=== PATIENT | female | born 1985 | race Caucasian/White ===

== ENCOUNTER 2020-06-17 12:29 | Emergency (ER) | payer OTHER, SELFPAY ==
--- NOTE | ~2020-06-17 | XR_ITS ---
EXAMINATION: XR abdomen/kub 1V DATE: 06/17/2020 13:03 INDICATION: Left mid back pain. Hematuria. TECHNIQUE: A supine view of the abdomen on 2 radiographs was obtained. COMPARISON: None. FINDINGS: There are no dilated loops of bowel. A calcification in right pelvis is likely a phlebolith . IMPRESSION: 1. No visible urolithiasis. Reviewed, dictated and finalized at location A. IMPRESSION: 1. No visible urolithiasis.
--- NOTE | 2020-06-17 12:36 | ED.GENADULT ---
HPI - General Adult General Chief complaint: Back Pain/Injury Stated complaint: lower back pain Time Seen by Provider: 06/17/20 12:36 Source: patient Mode of arrival: ambulatory Limitations: no limitations History of Present Illness HPI narrative: 35-year-old female patient presents to the [facility] with complaints of lower back pain. Patient states it started on the right side about 4 5 days ago and states it was a dull ache. Patient states that this morning she is now having some left lower back pain that is much more intense. Patient states her last pain is about 2 weeks ago. Patient states she does have history of endometriosis which she does not abnormal for her to have pain to the right lower back when she is ovulating due to the endometriosis but never had the intense pain to the left. Patient denies any pain with urination. Denies or breast-feeding. Denies any fevers but states that she did have some chills over the weekend. Denies any abdominal pain or vomiting but states she did have a little nausea over the weekend. Patient denies any history of kidney stones before in the past Related Data Home Medications Medication Instructions Recorded Confirmed No Home Medications 06/17/20 06/17/20 Allergies Allergy/AdvReac Type Severity Reaction Status Date / Time No Known Allergies Allergy Verified 06/17/20 12:49 Review of Systems Review of Systems: Narrative: CONSTITUTIONAL: Denies fever, chills, or sweats. EYES: Denies visual changes, redness, or discharge. ENT: Denies rhinorrhea, congestion, sore throat, or otalgia. CARDIOVASCULAR: Denies chest pain, palpitations, or edema. RESPIRATORY: Denies cough or dyspnea. GASTROINTESTINAL: Denies abdominal pain, nausea, vomiting, or diarrhea. GENITOURINARY: Denies dysuria or hematuria. SKIN: Denies rash or itching. MUSCULOSKELETAL: Positive low back pain, denies joint pain, or myalgia. NEUROLOGIC: Denies headache, numbness, or weakness. PSYCHIATRIC: Denies anxiety or depression. [facility] Past Medical History Medical History Asthma Endometriosis Pneumonia Surgical History Surgical History [place] teeth removed Comments At the time of my signature I agree with nursing past medical history, surgical, social, and family history. There is no relevant family history pertinent to the presenting complaint. Exam Narrative: Exam Narrative: GENERAL: Well-appearing, well-nourished, and in no acute distress. HEAD: Normocephalic, atraumatic. EYES: PERRLA and EOMI. ENT: Nares clear, no rhinorrhea or epistaxis. Mucous membranes moist. NECK: Supple. No lymphadenopathy CHEST: Clear to auscultation. No respiratory distress. HEART: Regular rate and rhythm. No murmur heard. Normal peripheral pulses. ABDOMEN: Soft, flat, nondistended. No guarding, rebound tenderness, or rigid. No pulsatilla masses. Bowel sounds present in all four quadrants. No organomegaly. Negative Bueno?s sign. No periumbicial tenderness. No Supra public tenderness or distension. Good femoral pulses bilaterally. No hernia noted. No scars or surface trauma. Slight left-sided CVA tenderness on percussion. Patient had a lot of pain when trying to lay flat on exam table. EXTREMITIES: Normal range of motion. No edema. SKIN: Warm, dry, no rash. NEURO: No focal deficits. Alert and oriented x3. Course Reevaluation(s) Reevaluation #1: Reevaluated patient after her x-ray resulted. Discussed with her that her x-ray is negative for any obvious kidney stones however as they had told her before that this is not necessarily a good indicator of kidney stones and due to her pain I think that we need to send her over to get a CT to evaluate this. Patient is in agreement with this plan of care. Patient is requesting to go to [facility] for further evaluation. Date: 06/17/20 Time: 13:15 Vital Signs Vital sig
[2020-06-17 12:39] VITALS: BP 122/67; PULSE 88; RESP 14; TEMP 36.6; O2SAT 100
--- NOTE | 2020-06-17 13:19 | PC.NURSE ---
NO UC ORDERED PER PROVIDER
== END 2020-06-17 13:21 | disposition short-term general hospital (02) ==
PROVIDERS: Emergency Provider Nurse Practitioner Family; PCP Internal Medicine
DX: R10.9 Unspecified abdominal pain (principal); J45.909 Unspecified asthma, uncomplicated; N80.9 Endometriosis, unspecified
CPT/HCPCS: 74018; 81003; 99213; G0463

== ENCOUNTER 2022-07-03 08:51 | Outpatient (CLI) | payer OTHER, SELFPAY ==
--- NOTE | ~2022-07-03 | MMUS_ITS ---
EXAMINATION: MM diag yo implant BI w gabrielle, US breast RT limited HISTORY: Palpable lump at the 9:00 location of the right breast. TECHNIQUE: Craniocaudal, mediolateral, and mediolateral oblique 3-D tomosynthesis images with implant displacement of the breasts were performed Craniocaudal, mediolateral oblique, and mediolateral view s of the breasts without implant displacement were obtained using full field digital mammography. CAD analysis was submitted and interpreted. High resolution limited right breast ultrasound was performe d. COMPARISON: No prior mammogram is currently available for comparison. BREAST PARENCHYMAL COMPOSITION: The breasts are extremely dense, which lowers the sensitivity of mamm ography. FINDINGS: MAMMOGRAPHIC FINDINGS: There is a 1.5 cm oval, obscured, equal density mass at the 9:00 location 3.5 cm from the nipple in t he right breast corresponding to the palpable abnormality of concern. No suspicious mass, calcificati on, or architectural distortion are identified in the left breast malignancy. ULTRASOUND: There is a 1.7 cm simple cyst of the right breast corresponding to the palpable abnormality of concer n. No suspicious cystic or solid mass is identified. IMPRESSION: 1. No mammographic or sonographic evidence of malignancy. 2. Recommend routine screening mammography in one year. BI-RADS Category 2: Benign finding(s). Reviewed, dictated and finalized at location A. IMPRESSION: 1. No mammographic or sonographic evidence of malignancy. 2. Recommend routine screening mammography in one year. BI-RADS Category 2: Benign finding(s).
== END 2022-07-03 08:52 | disposition home or self-care (01) ==
LOC: CHSIMG 08:54
PROVIDERS: PCP Internal Medicine; Visit Provider Internal Medicine
DX: N63.10 Unspecified lump in the right breast, unspecified quadrant (principal)
CPT/HCPCS: 76642; 77062; 77066; G0279